=== PATIENT | female | born 1940 | race Caucasian/White ===

== ENCOUNTER → 2025-06-06 11:44 | Outpatient (CLI) | payer MEDICARE, SELFPAY ==
--- NOTE | 2025-06-06 11:48 | DI.RAD.S_ITS ---
PROCEDURE: XR LUMBAR SPINE MIN 5V INDICATIONS: BACK PAIN TECHNIQUE: 5 views of the lumbar spine were acquired, including bilateral oblique views. COMPARISON: None. FINDINGS: Moderate dextroscoliosis of the lumbar spine with Oconnor angle approximately 25 and levoscoliosis of the lower thoracic spine partially imaged. Moderate degenerative changes lower thoracic, lumbar spine with disc space narrowing, osteophytes, facet osseous hypertrophic changes most notably at L3-4, L4-5 and L5-S1 with suspected neural foraminal narrowing left greater than right. Moderate degenerative changes of the hips and sacroiliac joints partially imaged. Pattern of constipation in the abdomen. No radiographic evidence of fracture or significant subluxation. Vascular calcifications of the aorta partially imaged. There Oblique images: No gross radiographic evidence of pars defect. IMPRESSION: Scoliosis and degenerative changes as discussed above. If symptoms persist or worsen, or there is high clinical suspicion of lumbar abnormality, MRI could be performed. Dictated by: Trey Zepeda M.D. on 06/06/2025 at 14:04 Approved by: Trey Zepeda M.D. on 06/06/2025 at 14:07
--- NOTE | 2025-06-06 11:48 | DI.RAD.S_ITS ---
PROCEDURE: XR THORACIC SPINE 3V INDICATIONS: RIB PAIN TECHNIQUE: 3 views of the thoracic spine were acquired. COMPARISON: None. FINDINGS: Moderate dextroscoliosis of the mid thoracic spine with Oconnor angle approximately 26??? convex of the right. Mildly exaggerated thoracic kyphosis. Mild levoscoliosis of the lower cervical, upper thoracic spine. Moderate degenerative changes throughout the thoracic spine with disc space narrowing, osteophytes, costovertebral and facet hypertrophic changes. Incidental note is made of moderate calcifications of the aortic arch and possible 2.5 cm right upper lateral thoracic peripheral pleural base nodule versus artifact. No radiographic evidence compression fracture or significant subluxation. IMPRESSION: Possible right lung upper lobe 2.5 cm nodule, follow-up suggested. CT chest would be useful for further evaluation. Scoliosis and degenerative changes of the thoracic spine. If symptoms persist or worsen, or there is high clinical suspicion of thoracic abnormality, MRI could be performed. Dictated by: Trey Zepeda M.D. on 06/06/2025 at 14:07 Approved by: Trey Zepeda M.D. on 06/06/2025 at 14:12
== END ==
PROVIDERS: PCP Student in an Organized Health Care Education/Training Program; Referring Provider Student in an Organized Health Care Education/Training Program; Visit Provider Physical Medicine & Rehabilitation
DX: M47.814 Spondylosis without myelopathy or radiculopathy, thoracic region (principal); M47.816 Spondylosis without myelopathy or radiculopathy, lumbar region; M47.817 Spondylosis without myelopathy or radiculopathy, lumbosacral region; R07.81 Pleurodynia; M54.9 Dorsalgia, unspecified; M41.9 Scoliosis, unspecified; K59.00 Constipation, unspecified
CPT/HCPCS: 72072; 72110